=== PATIENT | female | born 1995 | race Caucasian/White ===

== ENCOUNTER 2021-05-04 10:04 | Emergency (ER) | payer OTHER ==
[~2021-05-04] VITALS: Ht 149.9 cm; Wt 59.0 kg
[2021-05-04] MEDS ORDERED: ZITHROMAX250 MG PO (11:31)
== END 2021-05-04 11:46 | disposition home or self-care (01) ==
LOC: FSED 10:33
DX: R05 Cough (principal); J20.9 Acute bronchitis, unspecified; J02.9 Acute pharyngitis, unspecified; F17.210 Nicotine dependence, cigarettes, uncomplicated
CPT/HCPCS: 71045; 81003; 81025; 99283